=== PATIENT | male | born 1935 | race Caucasian/White ===

== ENCOUNTER 2019-12-18 12:27 | Emergency (ER) | payer OTHER ==
[~2019-12-18] VITALS: Ht 172.7 cm; Wt 74.5 kg
[~2019-12-18 12:27] MED LIST: AMBIEN5 MG PO; ARICEPT5 MG PO; CELEXA10 MG PO; COUMADIN1 MG PO; CYCLOBENZAPRINE10 MG PO; CYCLOBENZAPRINE5 MG; FENOGLIDE40 MG PO; HYDROCHLOROTH12.5 M1 PO; INDERAL10 MG PO; ISOSORBIDE MONO10 MG PO; LANOXIN125 MCG PO; LIPITOR20 MG PO; NIACIN100 MG PO; SINEMET 10/101 UDTAB PO; ULTRAM50 MG PO; VITAMIN B-1250 MCG PO; XANAX0.25 MG PO; ZYLOPRIM300 MG PO
[2019-12-18 12:56] VITALS: Ht 172.7 cm; Wt 74.5 kg
[2019-12-18] MEDS ORDERED: COUMADIN3 MG PO (13:01)
[2019-12-18 13:32] LABS: BASOPHILS 0.9 % (0-2); EOSINOPHILS 4.4 % (0-7); HEMATOCRIT 34.7 % (42.0-54.0); HEMOGLOBIN 10.5 g/dL (13.5-17.5); LYMPHOCYTES 30.1 % (15-50); MCH 31.4 pg (26.0-34.0); MCHC 30.3 g/dL (31.0-37.0); MCV 103.9 fL (80.0-100.0); MEAN PLATELET VOLUME 10.8 fL (7.4-10.4); MONOCYTES 10.4 % (2-11); NEUTROPHILS 54.2 % (40-80); RBC 3.34 10x6/uL (4.20-6.10); RDW 13.9 % (11.5-14.5); WBC 4.3 10x3/uL (4.8-10.8)
[2019-12-18 13:44] LABS: CALC OSMOLALITY 288 mosm/kg (275-300); CALCIUM 7.7 mg/dL (8.5-10.1); CARBON DIOXIDE 23.9 mmol/L (21.0-32.0); CHLORIDE - SERUM 109 mmol/L (98-107); CREATININE - SERUM 2.3 mg/dL (0.6-1.3); GLUCOSE 93 mg/dL (74-106); POTASSIUM - SERUM 5.8 mmol/L (3.5-5.1); SODIUM 139 mmol/L (136-145); UREA NITROGEN 43 mg/dL (7-18); eGFR NON AFRICAN AMERICAN 29 mL/min (90-120)
[2019-12-18 13:50] LABS: PLATELET COUNT 166 10x3/uL (130-400)
[2019-12-18 13:55] LABS: APTT 27.8 SECONDS (22.8-39.4); INR 1.78 (0.85-1.17); PROTIME 20.5 SECONDS (11.6-15.0)
[2019-12-18 14:01] LABS: ALBUMIN 3.6 g/dL (3.4-5.0); ALKALINE PHOSPHATASE 68 U/L (30-120); ALT (SGPT) 25 U/L (10-68); BILIRUBIN - TOTAL 0.27 mg/dL (0.2-1.3); CKMB 1.4 U/L (0.0-3.6); CREATINE KINASE 90 UL (21-232); PROTEIN - SERUM 7.5 g/dL (6.4-8.2); TROPONIN-I < 0.017 ng/mL (0.000-0.060)
[2019-12-18 14:07] LABS: BILIRUBIN NEGATIVE (NEGATIVE); GLUCOSE NEGATIVE (NEGATIVE); KETONE NEGATIVE (NEGATIVE); NITRITE NEGATIVE (NEGATIVE); UROBILINOGEN NORMAL (NORMAL)
[2019-12-18] MEDS ORDERED: MECLIZINE HCL25 MG PO (15:19)
[2019-12-18 17:40] VITALS: BP 171/77
== END 2019-12-18 16:45 | disposition home or self-care (01) ==
LOC: D.ER 12:27
PROVIDERS: Family Medicine
DX: R42 Dizziness and giddiness (principal); N28.9 Disorder of kidney and ureter, unspecified; I25.2 Old myocardial infarction; Z95.1 Presence of aortocoronary bypass graft